=== PATIENT | female | born 1970 | race Caucasian/White ===

== ENCOUNTER 2022-08-10 21:03 | Emergency (ER) | payer OTHER ==
--- NOTE | 2022-08-10 21:09 | ERPHSYRPT ---
- History of Present Illness Time Seen by Provider: 08/10/22 21:09 Source: patient Exam Limitations: no limitations Physician History: This is a 52-year-old white female patient who is right-handed and suffered no trauma to her right shoulder or right upper extremity and presents with right shoulder aches and pains. She feels as though she slept on it wrong. She did not have the pain before she went to bed and she has had the pain since she woke up. Patient is chronically on once a day hydrocodone. She is on anticoagulation therapy and does not take NSAIDs. She is also is allergic to steroids. Patient denies shortness of breath and denies chest pain. Occurred: this morning Method of Injury: other (No injury) Quality: constant, aching Severity of Pain-Max: moderate Severity of Pain-Current: mild (To moderate) Extremities Pain Location: shoulder: right Modifying Factors: Improves With: movement Associated Symptoms: none Allergies/Adverse Reactions: prednisone Adverse Reaction (Intermediate, Verified 08/10/22 21:22) Travel Risk - International Travel Have you traveled outside of the country in past 3 weeks: No - Coronavirus Screening Are you exhibiting any of the following symptoms?: No Close contact with a COVID-19 positive Pt in past 14-21 Days: No - Review of Systems Constitutional: No Symptoms Eyes: No Symptoms Ears, Nose, & Throat: No Symptoms Respiratory: No Symptoms Cardiac: No Symptoms Abdominal/Gastrointestinal: No Symptoms Genitourinary Symptoms: No Symptoms Musculoskeletal: Joint Pain (Tender right shoulder), No Injury Neurological: No Symptoms Psychological: No Symptoms Endocrine: No Symptoms Hematologic/Lymphatic: No Symptoms Immunological/Allergic: No Symptoms All Other Systems: Reviewed and Negative - Past Medical History Pertinent Past Medical History: Yes - Past Surgical History Past Surgical History: Yes - Nursing Vital Signs Nursing Vital Signs: Initial Vital Signs Temperature 98.2 F 08/10/22 21:11 Pulse Rate 77 08/10/22 21:11 Respiratory Rate 18 08/10/22 21:11 Blood Pressure 130/60 08/10/22 21:11 O2 Sat by Pulse Oximetry 96 08/10/22 21:11 Pain Scale Pain Intensity 9 - Physical Exam General Appearance: no apparent distress, alert, anxiety, thin Eyes, Ears, Nose, Throat Exam: normal ENT inspection, moist mucous membranes Neck Exam: normal inspection, non-tender, supple, full range of motion Cardiovascular/Respiratory Exam: chest non-tender, normal breath sounds, regular rate/rhythm, heart sounds normal, no respiratory distress Abdominal Exam: non-tender Back Exam: normal inspection Shoulder Exam: normal inspection, no evidence of injury, limited ROM, soft tissue tenderness (In the distribution of the deltoid muscle and posterior trapezius muscle on the right) Elbow/Forearm Exam: normal inspection, non-tender, no evidence of injury, normal ROM Wrist Exam: normal inspection Hand Exam: normal inspection, non-tender, no evidence of injury, normal ROM Neuro/Tendon Exam: normal sensation, normal motor functions, normal tendon functions, responds to pain Mental Status Exam: alert, oriented x 3, cooperative Skin Exam: normal color, warm, dry SpO2 Interpretation: normal O2 Delivery: Room Air - Course Nursing assessment & vital signs reviewed: Yes Ordered Tests: Medication Summary Generic Name Dose Route Start Last Admin Trade Name Freq PRN Reason Stop Dose Admin Orphenadrine Citrate 100 mg 08/10/22 21:44 Orphenadrine Citrate 100 Mg Er Tab PO 08/10/22 21:45 STAT ONE - Progress Progress: unchanged Progress Note: 08/10/22 21:48 Medical decision making: This patient appears to have a muscle strain/spasm. S he did not suffer any traumatic injury. She did not use it excessively. Patient is already taking hydrocodone once a day. She prefers only to take the muscle relaxant medication. She cannot take NSAIDs. She is allergic to steroids. I do not feel this patient has a cardiac or pulmonary issue. I do not feel she has a dislocated shoulder or fracture. Therefore we will not obtain any x-rays. Patient agrees to that plan. Counseled pt/family regarding: diagnosis, need for follow-up - Departure Departure Disposition: Home Clinical Impression: Right shoulder strain Condition: Stable Critical Care Time: No Referrals: FREIDA BRIZUELA [Primary Care Provider] - Follow up/PCP as directed Additional Instructions: Alternate ice and heat to the area of tenderness every 6 hours for the next 48 hours. Continue your hydrocodone as prescribed. Follow-up with your primary care provider for further evaluation and management. Take your new medication as prescribed Prescriptions: Orphenadrine Citrate 100 mg [Norflex 100 MG Tablet] 100 mg PO BID #10 tab
[2022-08-10 21:12] VITALS: BP 130/60; PULSE 77; O2SAT 96
[2022-08-10] MEDS ORDERED: Norflex 100 MG Tablet PO ONE (21:46)
[2022-08-10] MEDS: Norflex 100 MG Tablet PO ONE ×2 (21:47→22:15)
== END 2022-08-10 22:05 | disposition home or self-care (01) ==
LOC: ED 21:03
DX: S46.911A Strain of unspecified muscle, fascia and tendon at shoulder and upper arm level, right arm, initial encounter (principal); Z79.01 Long term (current) use of anticoagulants; Z79.891 Long term (current) use of opiate analgesic
CPT/HCPCS: 99282; A9270-GY